=== PATIENT | male | born 1960 | race Caucasian/White ===

== ENCOUNTER 2024-06-02 09:35 | Day surgery (SDC) | payer MEDICARE ==
[~2024-06-02] VITALS: Ht 182.9 cm; Wt 84.1 kg
[~2024-06-02 09:35] MED LIST: Lactated Ringer's 1,000 ML IV ONE; propofoL 50 ML IV ONE
[2024-06-02] MEDS ORDERED: LOSARTAN-HCTZ1 EACH (09:52)
[2024-06-02] MEDS ORDERED: Nexium40 MG (09:54)
[2024-06-02] MEDS ORDERED: Lactated Ringer's 1,000 ML IV ONE (10:52)
== END 2024-06-02 12:12 | disposition home or self-care (01) ==
LOC: ORSCSDS 09:35
PROVIDERS: Internal Medicine Gastroenterology
PROC: 0DB68ZX Excision of Stomach, Via Natural or Artificial Opening Endoscopic, Diagnostic (ICD-10-PCS; principal; 2024-06-02 11:00)
PROC: 0DBP8ZX Excision of Rectum, Via Natural or Artificial Opening Endoscopic, Diagnostic (ICD-10-PCS; principal; 2024-06-02 11:00)
DX: R13.10 Dysphagia, unspecified (principal); Z12.11 Encounter for screening for malignant neoplasm of colon; D12.8 Benign neoplasm of rectum; Z80.0 Family history of malignant neoplasm of digestive organs; Z87.891 Personal history of nicotine dependence
CPT/HCPCS: 88305; 88342; J2704; J7120